=== PATIENT | female | born 1975 | race Caucasian/White ===

== ENCOUNTER 2025-01-29 12:06 | Day surgery (SDC) | payer OTHER, SELFPAY ==
[2025-01-29] VITALS (10 sets, daily range): BP systolic 106–151; BP diastolic 65–85; BMI 36.4
[2025-01-29 08:24] LABS: Hematocrit 42.1 % (37.0-47.0); Hemoglobin 14.1 g/dL (12.0-16.0); Mean Corp Hgb Conc. 33.5 g/dL (33.0-37.0); Mean Corpuscular Volume 83.4 fL (81.0-99.0); Nucleated Red Blood Cells % 0 %; Platelet Count 326 10^3/uL (130-400); Red Cell Dist. Width 13.6 % (11.5-14.5)
--- NOTE | 2025-01-29 08:31 | ED.GENMED ---
History of Present Illness
<Ned Chisholm PA-C - Last Filed: 01/29/25 16:25>
General
Chief Complaint: Abdominal Pain
Time Seen by Provider: 01/29/25 08:27
History of Present Illness
History of Present Illness:
49-year-old female presents to the emergency department for evaluation of right lower quadrant pain. States that she developed mild abdominal discomfort 2 days ago that gradually worsened, overnight developed significant increase in sharp abdominal
pain to the right lower quadrant. Pain is nonradiating, constant, without associated fever, chills, sweats, nausea, vomiting, or diarrhea. No history of abdominal surgeries. Denies any lower urinary tract voiding symptoms. Pain mild to moderate
at this time
Past History
<Ned Chisholm PA-C - Last Filed: 01/29/25 16:25>
Past History
ED Past Medical History: Other (DVT, IBS, polydactyl)
ED Past Surgical History: None and Other (removal of supranumery fingers)
Social History
Tobacco: Non-smoker
Alcohol: Occasional
Personal:
Living: with family
Employment: Employed
Review of Systems
<Ned Chisholm PA-C - Last Filed: 01/29/25 16:25>
Review of Systems
Allergies reviewed?: Yes
All Other Systems: ROS reviewed and negative except as documented in HPI and ROS
Phy Exam
<Ned Chisholm PA-C - Last Filed: 01/29/25 16:25>
Physical Exam
Physical Exam:
GEN: Well appearing, NAD, WDWN
HEENT: Oral mucosa moist, no scleral icterus
Cardiac: Regular rate and rhythm, no murmur
Lung: No respiratory distress, no tachypnea
Abdomen: Soft, focal moderate to severe tenderness in the right lower quadrant, no rigidity or peritoneal signs
MSK: No gross deformity or injuries
Skin: Good color, no pallor or jaundice, no rashes
Neuro: AO x3, moves all extremities freely
Psych: Calm, cooperative
Course
<Ned Chisholm PA-C - Last Filed: 01/29/25 16:25>
Orders/Labs/Results
Orders:
Orders
01/29/25 04:03
IV Insert/Care/Rem.- Treatment PRN
Straight cath- Treatment ONCE
01/29/25 07:56
Urinalysis Reflex To Culture Urgent
Date Specimen was Collected: 01/29/25
Time Specimen was Collected: 04:03
Urine Microscopic Reflex Cult Urgent
Urine Culture Urgent
OSMAR Source: U
Specimen Description:
Date Specimen was Collected: 01/29/25
Time Specimen was Collected: 04:03
01/29/25 08:09
Complete Blood Count/With Diff Urgent
Comprehensive Metabolic Panel Urgent
Lipase Urgent
01/29/25 08:43
CT Abd/Pel (IV only)-DH only Urgent
Comment:
Reason For Exam: RLQ pain
0.9% Sodium Chloride 1000 ml [Nss] 1,000 ml IV BOLUS
01/29/25 10:16
Piperacillin/Tazo 3.375 Gram [Zosyn] 3.375 gram in 50 ml IV NOW
01/29/25 11:15
Heparin 5,000 units SC NOW STA
01/29/25 11:45
Admit/Transfer Patient As Directed
Co-Sign Provider:
Level of Care: Post Proc/Surg Recovery
Assign to:: Medical/Surgical
Physician / Group: brian cornell
Diagnosis: acute appendicitis
Reason for Overnight Stay: Standard of Care
PRN Pain Medication Management As Directed
May give lesser potent ordered pain med per pt: Yes
preference::
Protocol:: Medication orders for pain may be administered in a
manner that supports deferring to patient preference
when the pt is:
- Requesting an ordered lesser potent pain medication.
Least to most potent pain medications are defined
as: acetaminophen < NSAID < tramadol < opioids
(morphine, oxycodone, hydromorphone).
- Requesting a lesser dose of the same medication IF
ORDERED.
- Requesting a less intrusive route of administration
if both routes are prescribed by the provider (PO <
IV).
Abnormal Lab Results
01/29/25 01/29/25
07:56 08:09
MPV 10.8 H fL
(7.4-10.4)
Absolute Neuts (auto) 7.4 H 10^3/uL
(1.4-6.5)
Glucose 106 H mg/dl
(70-99)
Total Protein 8.4 H g/dl
(6.3-8.2)
Leukocyte Esterase Rfl 2+ A
(Negative)
Urine RBC 3-6 A /HPF
(0-2)
Urine WBC (Reflex) 16-20 A /HPF
(0-5)
Urine Bacteria (Reflex) Moderate A
(Negative)
01/29/25 08:09
01/29/25 08:09
Vital Signs
Initial and Last Documented VS:
Initial Vital Signs
Temp Pulse Resp BP Pulse Ox
97.3 F 88 20 151/85 99
01/29/25 03:58 01/29/25 03:58 01/29/25 03:58 01/29/25 03:58 01/29/25 03:58
Last Documented Vital Signs
Temp Pulse Resp BP Pulse Ox
97.9 F 77 16 116/77 100
01/29/25 15:55 01/29/25 15:55 01/29/25 15:55 01/29/25 15:55 01/29/25 15:55
<Latia Rahman, DO - Last Filed: 01/29/25 10:59>
Orders/Labs/Results
Orders:
Orders
01/29/25 04:03
IV Insert/Care/Rem.- Treatment PRN
Straight cath- Treatment ONCE
01/29/25 07:56
Urinalysis Reflex To Culture Urgent
Date Specimen was Collected: 01/29/25
Time Specimen was Collected: 04:03
Urine Microscopic Reflex Cult Urgent
Urine Culture Urgent
OSMAR Source: U
Specimen Description:
Date Specimen was Collected: 01/29/25
Time Specimen was Collected: 04:03
01/29/25 08:09
Complete Blood Count/With Diff Urgent
Comprehensive Metabolic Panel Urgent
Lipase Urgent
01/29/25 08:43
CT Abd/Pel (IV only)-DH only Urgent
Comment:
Reason For Exam: RLQ pain
0.9% Sodium Chloride 1000 ml [Nss] 1,000 ml IV BOLUS
01/29/25 10:16
Piperacillin/Tazo 3.375 Gram [Zosyn] 3.375 gram in 50 ml IV NOW
01/29/25 11:15
Heparin 5,000 units SC NOW STA
01/29/25 11:45
Admit/Transfer Patient As Directed
Co-Sign Provider:
Level of Care: Post Proc/Surg Recovery
Assign to:: Medical/Surgical
Physician / Group: brian cornell
Diagnosis: acute appendicitis
Reason for Overnight Stay: Standard of Care
PRN Pain Medication Management As Directed
May give lesser potent ordered pain med per pt: Yes
preference::
Protocol:: Medication orders for pain may be administered in a
manner that supports deferring to patient preference
when the pt is:
- Requesting an ordered lesser potent pain medication.
Least to most potent pain medications are defined
as: acetaminophen < NSAID < tramadol < opioids
(morphine, oxycodone, hydromorphone).
- Requesting a lesser dose of the same medication IF
ORDERED.
- Requesting a less intrusive route of administration
if both routes are prescribed by the provider (PO <
IV).
Abnormal Lab Results
01/29/25 01/29/25
07:56 08:09
MPV 10.8 H fL
(7.4-10.4)
Absolute Neuts (auto) 7.4 H 10^3/uL
(1.4-6.5)
Glucose 106 H mg/dl
(70-99)
Total Protein 8.4 H g/dl
(6.3-8.2)
Leukocyte Esterase Rfl 2+ A
(Negative)
Urine RBC 3-6 A /HPF
(0-2)
Urine WBC (Reflex) 16-20 A /HPF
(0-5)
Urine Bacteria (Reflex) Moderate A
(Negative)
01/29/25 08:09
01/29/25 08:09
Vital Signs
Initial and Last Documented VS:
Initial Vital Signs
Temp Pulse Resp BP Pulse Ox
97.3 F 88 20 151/85 99
01/29/25 03:58 01/29/25 03:58 01/29/25 03:58 01/29/25 03:58 01/29/25 03:58
Last Documented Vital Signs
Temp Pulse Resp BP Pulse Ox
97.9 F 77 16 116/77 100
01/29/25 15:55 01/29/25 15:55 01/29/25 15:55 01/29/25 15:55 01/29/25 15:55
<Ned Chisholm PA-C - Last Filed: 01/29/25 16:25>
MDM/Problems Addressed
MDM/Problems Addressed:
CT confirms acute appendicitis, will be admitted to the surgical service for intervention
<Ned Chisholm PA-C - Last Filed: 01/29/25 16:25>
*Pulse Oximetry
SaO2: 99
Oxygen Mode of Delivery: Room air
Patient hypoxic: no
*Critical Care Note
Total Time (30-74mins, 75-104mins- exclusive of procedures): Not Applicable
ED Attending Note
<Ned Chisholm PA-C - Last Filed: 01/29/25 16:25>
-
Portions of this chart may have been created with voice recognition software.� Occasional wrong word or��sound alike� substitutions may have occurred due to the inherent limitations of voice recognition software.
<Latia Rahman DO - Last Filed: 01/29/25 10:59>
ED Attending Note
Patient seen and examined by attending physician: Yes
I performed the substantive portion of visit, reviewed & personally made and approve the management plan that is documented in note by myself or DARA.: Yes
I performed a history and physical exam of patient and discussed management with resident, I reviewed resident's note and agree with documented findings and plan of care.: Yes
ED Attending Note:
49-year-old female with history of IBS presenting to the emergency department with lower abdominal pain. Notes that last evening it was in the mid abdominal region, has now shifted to the right lower quadrant. Denies any history of abdominal
surgeries. Denies fever. Denies additional acute medical complaints. Vital signs on arrival are significant for mild hypertension.
On exam, patient is resting comfortably, nontoxic. Focal tenderness to the right lower quadrant without rebound or guarding. Labs obtained prior to my assessment, unremarkable. Patient seen and evaluated by physician medical assistant prn prior to my
assessment with appropriate workup including CT abdomen pelvis with ultimate concern for appendicitis. Pending CT read. At this time patient hemodynamically stable
10:40 - CT consistent with appendicitis. Will administer antibiotics. Surgery aware
Discharge Plan
Departure
Patient Disposition: Admit
Date of Disposition: 01/29/25
Time of Disposition: 10:16
Admit to: Med/Surg
Presentation/result/management discussed w/ accepting MD/DO: Surgery-[facility]
Discharge Problem:
Acute appendicitis
Interventions
Interventions:
*General Assessment Last Done: 01/29/25 03:58
*Neglect/Abuse Screening Last Done: 01/29/25 03:58
*ED COVID-19 Vaccine History Last Done: 01/29/25 03:58
*ED Influenza Vaccine History Last Done: 01/29/25 03:58
*Nursing Disposition Last Done: 01/29/25 12:38
KG-Jaouyc-Cwdqlwcfhe Assessment Last Done: 01/29/25 11:25
Discharge Date and Time
Discharge Date/Time: 01/29/25 12:49
[2025-01-29 08:38] LABS: Urine Character Clear (Clear)
[2025-01-29 08:45] LABS: ALT (SGPT) 16 U/L (0-35); AST (SGOT) 22 U/L (14-36); Albumin 4.8 g/dl (3.5-5.0); Alkaline Phosphatase 119 U/L (38-126); Blood Urea Nitrogen 13 mg/dl (7-17); Calcium 9.9 mg/dl (8.4-10.2); Carbon Dioxide 27 mmol/L (22-30); Chloride 104 mmol/L (98-107); Glucose 106 mg/dl (70-99); Lipase 174 U/L (23-300); Potassium 4.7 mmol/L (3.5-5.1); Sodium 138 mmol/L (135-145); Total Protein 8.4 g/dl (6.3-8.2); eGFR > 60.00
[2025-01-29 08:58] LABS: Urine Squamous Cell >30 /LPF (Few)
[2025-01-29 09:00] LABS: Urine White Cell 16-20 /HPF (0-5)
[2025-01-29] MEDS: NSS 1000 IV ×2 (09:15→15:34)
[2025-01-29] MEDS: ZOSYN 50 IV ×2 (11:13→18:00)
--- NOTE | 2025-01-29 11:35 | HPS.HSE ---
Family Physician
-
Family Physician: Santos Zavala
Chief Complaint
-
Abdominal pain
History of Present Illness
49-year-old female who was in her usual baseline state of health until Thursday evening when she began developing a generalized upper abdominal discomfort. She thought she may be coming down with a stomach bug as she had mild associated anorexia but
no vomiting. Yesterday throughout the day her abdominal pain began to increase in severity and subsequently localized to the right lower quadrant. She has had anorexia and continued mild nausea but no vomiting. She has mild constipation at
baseline and her last bowel movement was a couple days ago. No similar episodes of pain like this in the past.
No past abdominal surgical history
Medical history only notable for DVT in the left lower extremity diagnosed 5 years ago for which she was on Eliquis for 1 year and then stopped. She advises that she never did follow-up with a smt operator for full workup and evaluation.
Medical History
Past Medical History
Past Medical History: Reports Other (DVT)
Additional Past Medical History:
Left lower extremity DVT, IBS
Past Surgical History: Reports Other (Extra finger removed on either hand when she was an )
Social History
Tobacco: Non-smoker
Living: With Family
Family History
Family History: Not pertinent
Allergies / Home Medications
Allergies reflects when Allergies were last updated in [facility].
Home Medications with original date entered in [facility]
Allergy/Medication List:
Allergies
Allergy/AdvReac Type Severity Reaction Status Date / Time
No Known Allergies Allergy Verified 01/29/25 03:58
Patient does not take any active medications
Review of Systems
-
History Source: Patient
A 12 point ROS was completed and negative except as noted: Yes
Physical Exam
Vital Signs
Vital Signs
Temp Pulse Resp BP Pulse Ox
97.3 F 88 20 151/85 100
01/29/25 03:58 01/29/25 03:58 01/29/25 03:58 01/29/25 03:58 01/29/25 08:46
Physical Exam
General: Well Developed, Well Nourished, No Apparent Distress, Comfortable and Conversant
HEENT: NormoCephalic, Anicteric, Moist mucous membranes and Atraumatic
Respiratory: Non Labored Respirations
Cardiac: Regular Rhythm
GI: Soft, Non Distended and Tender (Localizing to the right lower quadrant with some voluntary guarding on deep palpation. No rebound or rigidity)
Skin: Warm
Neuro: AO x 3
Psych: Calm
Laboratory Results
-
01/29/25 08:09
01/29/25 08:09
Laboratory Results
Total Bilirubin 0.5 mg/dl (0.2-1.3) 01/29/25 08:09
AST 22 U/L (14-36) 01/29/25 08:09
ALT 16 U/L (0-35) 01/29/25 08:09
Alkaline Phosphatase 119 U/L (38-126) 01/29/25 08:09
Lipase 174 U/L (23-300) 01/29/25 08:09
Data Reviewed
-
CT Scan: Image Personally Visualized and interpreted (Dilated appendix with inflammatory changes and fecalith. No organizing fluid collections. No significant free fluid. No phlegmon.)
Impression/Plan
-
Assessment: 49-year-old female with acute appendicitis.
Reviewed with patient history, examination and CT imaging consistent with acute appendicitis. Discussed both operative and nonoperative management options and associated risks/benefits of approaches. Patient is in agreement to proceed with
appendectomy.
Incidental CT imaging findings of pancreatic tail cyst and left ovarian cyst
Laparoscopic appendectomy reviewed in detail with the patient. Discussed operative technique utilizing diagrams or drawings, alternative management options, benefits and potential risks such as but not limited to bleeding, infectious or wound
healing complications, iatrogenic injury to surrounding viscera. Discussed the typical postoperative recovery pending operative findings.
Any of the patient's concerns or questions were fully addressed and informed consent was obtained.
Plan: OR for laparoscopic appendectomy.
Empiric antibiotic coverage with Zosyn administered in the emergency department.
Nothing by mouth, IV fluid hydration and supportive care awaiting operative room availability.
SCDs for DVT prophylaxis
--- NOTE | 2025-01-29 11:42 | W.SUR.PREOP ---
Pre-Operative Surgical Note
-
I have examined this patient prior to the performance of the scheduled procedure.
The patient's condition is unchanged from the time of the current History and
Physical and the patient is able to undergo the scheduled procedure.
[2025-01-29] MEDS: HEPARIN 5000 UNITS SC (12:15)
--- NOTE | 2025-01-29 12:51 | CM ---
Chart reviewed. OR for lap appendectomy today
Spoke with pt and at ED bedside
Lives in [address] independent
no DME
PCP Santos Zavala
[facility] on [address]
no hx of VN nor SNF
DCP is to go home no needs
can drive her home
Cm will follow up with any dcp needs
--- NOTE | 2025-01-29 14:42 | W.IMMPOSTOP ---
Addendum entered and electronically signed by Atul Lujan MD 01/29/25 14:57:
#[id number]
Original Note:
Surgical Immed Post Op Note
-
Primary Surgeon: Atul Lujan MD
Assisting Surgeon: None
Pre-op Diagnosis: Acute appendicitis
Post-op Diagnosis: Acute appendicitis
Procedure Performed: Laparoscopic appendectomy
Anesthesia Type: GETA +0.25% Marcaine with epinephrine
Specimen / Cultures: Appendix/none
Estimated Blood Loss: 8 mL
Complications: None immediate
Operative Findings: Acutely inflamed and distended appendix with reactive free fluid. No purulence, minimal exudate. No perforation. No abscess. No disruption of appendix with appendectomy.
Simple appearing left and right ovarian cyst. No additional incidental findings
Patient's updated postoperatively in the waiting area.
[2025-01-29] MEDS: TYLENOL 650 MG PO (16:33)
[2025-01-29 17:45] LABS: Glucose - Point of Care 170 mg/dl (70-99)
[2025-01-29] MEDS: LOVENOX 40 MG SC (17:57)
[2025-01-30] MEDS: ZOSYN 50 IV ×2 (00:10→06:01)
[2025-01-30] MEDS: NSS 1000 IV (00:11)
[2025-01-30 02:49] VITALS: BP 106/68
[2025-01-30 07:10] VITALS: BP 127/66
--- NOTE | 2025-01-30 07:13 | W.PN.GS2 ---
Today's Communication / Plan
-
dc
Assessment / Plan
-
Assessment: 49-year-old female POD #1 status post laparoscopic appendectomy
AFVSS
Doing well postop
Plan: Stable for discharge home, no further antibiotics necessary on discharge
Subjective Data
-
Date of Service: January 30, 2025
Patient seen and examined.
Minimal postoperative incisional discomfort
Has ambulated, pain controlled, no nausea
Objective Data
-
Intake and Output
01/29/25 01/30/25 01/31/25
06:59 06:59 06:59
Intake Total 890 / 890
Balance 890 / 890
Intake:
Oral fluids 840 / 840
IV fluids (Total) 50 / 50
normosol 50 / 50
Other:
Number of approximated MODERATE 3
amounts of urine
Vital Signs
Temp Pulse Resp BP Pulse Ox
97.7 F 71 12 106/68 98
01/30/25 02:49 01/30/25 02:49 01/30/25 02:49 01/30/25 02:49 01/30/25 02:49
Lab Results
01/29/25 08:09
01/29/25 08:09
Calcium 9.9 mg/dl (8.4-10.2) 01/29/25 08:09
Total Bilirubin 0.5 mg/dl (0.2-1.3) 01/29/25 08:09
AST 22 U/L (14-36) 01/29/25 08:09
ALT 16 U/L (0-35) 01/29/25 08:09
Alkaline Phosphatase 119 U/L (38-126) 01/29/25 08:09
Total Protein 8.4 g/dl (6.3-8.2) H 01/29/25 08:09
Albumin 4.8 g/dl (3.5-5.0) 01/29/25 08:09
Physical Exam
-
NAD AAO x 3
ABD: Soft, nondistended, minimal incisional tenderness. Glue dressings in place
--- NOTE | 2025-01-30 07:17 | W.DS.TRANS ---
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
-
Discharge Instructions:
Discharge Diagnosis/Procedures Acute appendicitis status post laparoscopic
appendectomy; incidental left ovarian cyst as
well as pancreatic cyst seen on CT imaging
Diet As tolerated
Additional Diets Eat small meals at first as bloating is common
after surgery
Activity No strenuous activity
Additional Activity Do not lift over 20lbs for the next 2-3 weeks.
Walking/stairs/light activity is ok
Driving Restrictions No driving for 24 hours
Bathing Restrictions OK to Shower
Others Tests Outpatient MRI abdomen will be ordered at follow
-up with Dr. Lujan for evaluation of the
pancreatic cyst
Wound Care Glue dressing will flake off your wound over the
next 2 weeks, no other dressings are needed. Ok
to shower and wash incisions gently with soap
and water.
Instructions:
Stand-Alone Forms:
Changes to Home Medications: No
Discharge Medications:
DC Medications w/original date entered in [facility]
acetaminophen 500 mg tablet (Tylenol Extra Strength) 1,000 mg (2 x 500 mg) PO Q6HPRN PRN mild pain #1 tab 01/30/25
ibuprofen 200 mg tablet 400 mg (2 x 200 mg) PO Q6HPRN PRN moderate pain #1 tab 01/30/25
oxycodone 5 mg tablet 5 mg PO Q4HPRN PRN breakthrough/severe pain #5 tabs 01/30/25
polyethylene glycol 3350 17 gram/dose oral powder (Miralax) 4 g PO DAILY PRN Constipation #119 grams 01/30/25
Home Medication Changes
Pending Results: No
[2025-01-30] MEDS: NSS IV (08:36)
[2025-01-30] MEDS: COLACE 100 MG PO (08:48)
--- NOTE | 2025-01-30 10:46 | CM ---
Patient seen at bedside with no needs at this time and patient plan is for discharge home with family today. CM will continue to follow for discharge planning needs.
Plan; home with no needs
[2025-01-30 11:00] VITALS: BP 120/72
== END 2025-01-30 11:37 | disposition home or self-care (01) ==
LOC: SDS 12:06
PROVIDERS: Emergency Medicine; ATTENDING PHYSICIAN Surgery; EMERGENCY PHYSICIAN Student in an Organized Health Care Education/Training Program; FAMILY PHYSICIAN Family Medicine
DX: D37.3 Neoplasm of uncertain behavior of appendix (principal); K35.80 Unspecified acute appendicitis
CPT/HCPCS: 44970; 74177; 80053; 81003; 81015; 82962; 83690; 85025; 87086; 88304; 96361; 96374; 99285; Q9967